=== PATIENT | female | born 1985 | race Caucasian/White ===

== ENCOUNTER → 2016-11-20 | Outpatient (CLI) | payer BC ==
--- NOTE | 2016-11-20 21:41 | DI ---
US PELVIC-TRANSVAGINAL, US PELVIC COMPLETE (NON OB),11/20/2016 3:25 PM: Clinical History: Menometrorrhagia. Previous Exam: September 26, 2016 Findings: Multiple transvaginal and transabdominal grayscale and color Doppler sonographic images are obtained through the pelvis, and demonstrate a normal-appearing uterus measuring 7.8 x 4.8 x 3.7 cm with an en dometrial stripe measuring 4 mm. A few nabothian cysts are seen. The ovaries are within normal limits containing a few maturing follicles. Right ovary measured 3.0 x 2.7 x 2.4 cm with normal Doppler flow. The left ovary measured 2.8 x 2.8 x 1.6 cm also with normal Doppler flow. There is a simple right ovarian cyst measuring 2.6 x 1.9 x 2.0 cm. This was not seen on the prior exa m. Impression: Normal pelvic ultrasound.
== END ==
LOC: US 15:18
PROVIDERS: ATTEND Family Medicine
DX: N92.1 Excessive and frequent menstruation with irregular cycle (principal); N83.291 Other ovarian cyst, right side
CPT/HCPCS: 76830; 76856

== ENCOUNTER → 2016-12-23 | Outpatient (CLI) | payer BC ==
--- NOTE | 2016-12-24 10:28 | DI ---
US PELVIC LIMITED (NON-OB), US PELVIC-TRANSVAGINAL,12/23/2016 1:37 PM: Clinical History: Right ovarian cyst. Previous Exam: November 20, 2016 Findings: Multiple transabdominal and endovaginal grayscale and color Doppler sonographic images are obtained t hrough the pelvis. The uterus measures 7.8 x 3.3 x 4.4 cm with an endometrial stripe measuring 4 mm. The right ovary measures 2.3 x 2.1 x 2.5 cm with a normal sonographic appearance. There is a simple c yst noted within the right ovary measuring 2.1 x 1.6 x 1.9 cm. The left ovary measures 3.4 x 1.3 x 2.9 cm also with a normal sonographic appearance. There is normal Doppler flow involving both ovaries. There is no free fluid. Impression: Simple cyst is seen now is smaller than on the prior exam, but probably represents a separate cyst as there is also a new smaller cyst adjacent to this cyst, and the shape is different. There is no further followup necessary.
== END ==
LOC: US 13:34
PROVIDERS: ATTEND Nurse Practitioner Family
DX: N83.201 Unspecified ovarian cyst, right side (principal); N92.1 Excessive and frequent menstruation with irregular cycle
CPT/HCPCS: 76830; 76857

== ENCOUNTER 2018-04-14 21:38 | Observation (INO) ==
[2018-04-14] MEDS: Lactated Ringers-OB Dept 1,000 ML PRIMARY IV SCH (23:05)
[2018-04-15] MEDS ORDERED: CALCIUM CARBONATE 500 MG (TUMS) CHEWABLE TABLET PO PRN (01:47)
[2018-04-15] MEDS ORDERED: Ondansetron ODT Tab 4 MG TAB PO PRN (01:47)
[2018-04-15] MEDS ORDERED: ONDANSETRON 4 MG/2 ML VIAL IVP PRN (01:47)
[2018-04-15] MEDS: NIFEdipine 10 MG CAPSULE PO SCH ×6 (02:24→21:19)
[2018-04-15] MEDS: BETAMET ACET/BETAMET NA PH 6 MG/1 ML - 5 ML IM SCH (02:25)
[2018-04-15] MEDS: Lactated Ringers-OB Dept 1,000 ML PRIMARY IV SCH ×2 (09:59→17:40)
--- NOTE | 2018-04-15 09:59 | OB.PROGRES ---
Interval History: The patient is a 33-year-old at 36-1/7 weeks who has a history of a section for arrest of descent an asynclitic presentation after an induction for preeclampsia who presented last evening with contractions. Initially, the contractions improved with IV hydration but then continued. The patient's cervix was checked and she was found to be fingertip to 1 cm and posterior. The patient received betamethasone 12 mg IM earlier this morning around 0130 hrs. and then with continued contractions the patient was started on nifedipine 10 mg every 4 hours. The patient states that she can feel her contractions but not significantly painful. Positive movement. No gush of fluid. No bleeding. The patient's cervix was checked again this morning by the labor and delivery nurse and there is been no change with her cervical exam. The nurse did comment that the patient's cervix was posterior and fingertip to 1 cm. The patient is hungry. The patient states that her antepartum course is essentially been uncomplicated. Occasional [place] contractions. Past medical history benign Past surgical history 1 and tonsil surgery as well as orthopedic surgery The patient is allergic to amoxicillin and latex. No tobacco, no alcohol, no drugs. Objective - Cervical Exam Cervical Exam: Fingertip to 1 cm posterior [place]: Contractions sometimes every 2-3 minutes and sometimes they space out Heart Rate Interpretation Category: Category I - Vital Signs Last Taken Vital Signs: Vital Signs - Last Taken Temperature 97.8 F 04/15/18 05:00 Pulse Rate 63 04/15/18 05:00 Respiratory Rate 15 04/15/18 05:00 Blood Pressure 129/74 04/15/18 05:00 Pulse Ox 98 04/15/18 05:00 - Additional Details Additional Details: Lungs clear to auscultation Heart regular rate and rhythm Abdomen was soft, gravid and nontender Extremity trace edema bilaterally and reflexes 1+ bilaterally. No clonus. Assessment and Plan - Assessment / Plan Additional Assessment/Plan Details: Assessment: IUP 36-1/7 weeks with history of section with contractions. Patient has a history of preeclampsia with her first delivery. was for arrest of descent with asynclitic presentation. The patient continues to contract sometimes more regular than others. The patient is currently receiving nifedipine 10 mg every 4 hours. The patient is status post betamethasone 12 mg IM 1 dose and will receive the second dose tomorrow morning in early. Patient has a history of preeclampsia and she had one blood pressure 142/81 but all other blood pressures are normal. Negative protein on urine dip late last evening. Plan: I would like to get an ultrasound for EFW and AGUSTIN and presentation. Continue nifedipine 10 mg every 4 hours Betamethasone early tomorrow morning I would like to check a CBC and CMP. Continue to follow closely. I spoke with the patient and her that I would like to have the patient complete the betamethasone steroid window if the patient's cervix is not changing. If the patient continues to contract but did not change her cervix, the patient could continue to take the nifedipine 10 mg every 4 hours until 37 weeks gestation. If the patient starts to change her cervix, I would offer the patient a repeat section. I explained that the betamethasone was for lung maturity but sometimes baby still have to be transferred for pulmonary issues, temperature instability or glucose issues to a NICU in [place], [place]. This does not happen often but may happen. The patient and her expressed understanding with this possibility. The also expressed understanding that if we can wait several days prior to the repeat , that would be ideal but even if a section occurred now most likely the baby would do well but possibly still need a NICU.
[2018-04-15 11:26] LABS: BASOPHILS # (AUTO) 0.01 10*3/UL; BASOPHILS % (AUTO) 0.1 % (0-1); EOSINOPHILS # (AUTO) 0 10*3/UL; EOSINOPHILS % (AUTO) 0 % (0-8); Hematocrit [HCT] 36.5 % (37.0-47.0); Hemoglobin [HGB] 12.3 g/dL (12.0-16.0); LYMPHOCYTES # (AUTO) 0.88 10*3/uL; MEAN CORPUSCULAR HEMOGLOBIN 28.1 PG (27-31); MEAN CORPUSCULAR HGB CONC 33.7 g/dL (33-37); MEAN CORPUSCULAR VOLUME 83.5 FL (81-99); MONOCYTES # (AUTO) 0.12 10*3/UL (0.3-0.8); MONOCYTES % (AUTO) 1.1 % (5-15); NEUTROPHILS # (AUTO) 9.62 10*3/UL; NEUTROPHILS % (AUTO) 89.9 % (50-80); RED BLOOD COUNT 4.37 10^6/uL (4.20-5.40)
[2018-04-15 11:36] LABS: BLOOD UREA NITROGEN 5 mg/dL (7-22); SERUM ALBUMIN 3.8 g/dL (3.5-4.8)
[2018-04-15 12:02] LABS: PLATELET MORPHOLOGY COMMENT NORMAL MORPHOLOGY (NORM); RBC MORPHOLOGY COMMENT NORMAL MORPHOLOGY (NORM); WBC MORPHOLOGY COMMENT NORMAL MORPHOLOGY (NORM)
--- NOTE | 2018-04-15 14:28 | DI ---
US OB , Limited,04/15/2018 9:49 AM: Clinical History: contractions. Previous Exam: January 15, 2018 Findings: Multiple grayscale and color Doppler sonographic images are obtained through the pelvis and demonstra te a single live intrauterine gestation in vertex presentation. Placenta is posterior and fundal. Amniotic fluid index measured 16.5 cm. Detected Doppler heart tones measure 134 beats per minute. Estimated gestational age is determined by a composite of biparietal diameter, head circumference, ab dominal circumference and femur length yielding an estimated gestational age by ultrasound of 35 week s 5 days. Estimated weight is 2727 g (37th percentile.) Impression: Single live intrauterine gestation with amniotic fluid index of 16.5 cm. Estimated weight corresponds with the 37th percentile.
[2018-04-15] MEDS: ACETAMINOPHEN 325 MG TABLET PO PRN ×2 (15:00→21:19)
--- NOTE | 2018-04-15 17:20 | OB.PROGRES ---
Interval History: The patient states that she has done well today. The patient can feel her contractions but they are not as strong as yesterday. Sometimes her contractions space out and sometimes they get more frequent. The patient does not have any pelvic pressure. Baby is moving well. No leak of fluid. The patient is tolerating her nifedipine 10 mg every 4 hours but did get a headache earlier which Tylenol helped relieve. Objective - Cervical Exam Cervical Exam: Deferred currently [place]: Every 2-3 minutes sometimes other times more spaced out. Heart Rate Interpretation Category: Category I - Labs CBC and BMP: 04/15/18 11:00 04/15/18 09:51 - Vital Signs Last Taken Vital Signs: Vital Signs - Last Taken Temperature 98 F 04/15/18 09:30 Pulse Rate 77 04/15/18 12:00 Respiratory Rate 16 04/15/18 12:00 Blood Pressure 130/71 04/15/18 09:30 Pulse Ox 98 04/15/18 12:00 Assessment and Plan - Assessment / Plan Additional Assessment/Plan Details: Assessment: IUP 36-1/7 weeks with previous section with contractions. Patient received 1 dose of steroids earlier this morning at 0225 hours. Patient's contractions are less intense than they were when the patient first resented last evening. The patient does not feel any pressure. I did not check the patient's cervix now since the patient's cervix was checked last evening and this morning and the patient's cervix was a fingertip to 1 cm dilated. I did not want to irritate the patient's cervix and cause more contractions and irritability. Plan: The patient will continue to be observed and received her second dose of betamethasone 12 mg IM at 0225 hours tomorrow morning. If the patient's cervix has not changed tomorrow morning and the patient's contractions are not intense, it is a possibility for the patient to go home to return the next day for evaluation. However, the patient may also stay and continued to be evaluated for cervical change. On Friday (today is Friday) if the patient's cervix has not changed and the patient's contractions are improved, the patient may be discharged home with close follow-up. If the patient's cervix has changed on Friday, a repeat section could be completed then. The patient and I discussed this plan. The patient expressed understanding.
[2018-04-16] MEDS: NIFEdipine 10 MG CAPSULE PO SCH ×6 (02:13→21:37)
[2018-04-16] MEDS: BETAMET ACET/BETAMET NA PH 6 MG/1 ML - 5 ML IM SCH (02:14)
[2018-04-16] MEDS: Lactated Ringers-OB Dept 1,000 ML PRIMARY IV SCH ×3 (05:46→16:22)
--- NOTE | 2018-04-16 09:29 | OB.PROGRES ---
Interval History: 33 yo at 36 2/7 weeks gestation admitted for contractions. She reports that at about 3 hours after her procardia the contractions hot die picker again. Early this morning they were much more painful than they had been throughout her hospitalization. Associated back pain, nausea. Feels like when she was in labor with her son. Objective - Cervical Exam Cervical Exam: per RN 1/ /-3, posterior - unchanged [place]: 30 minutes between contraction Heart Rate: baseline 115, accels, no decels, mod variability Heart Rate Interpretation Category: Category I - Labs CBC and BMP: 04/15/18 11:00 04/15/18 09:51 - Vital Signs Last Taken Vital Signs: Vital Signs - Last Taken Temperature 97.7 F 04/16/18 09:20 Pulse Rate 65 04/16/18 09:20 Respiratory Rate 16 04/16/18 09:20 Blood Pressure 128/68 04/16/18 09:20 Pulse Ox 95 04/16/18 09:20 Assessment and Plan - Patient Problems (1) contractions Current Visit: Yes Status: Acute Code(s): O47.9 - False labor, unspecified (2) S/P primary low transverse Current Visit: No Status: Acute Code(s): Z98.89 - Other specified postprocedural states Support Text: 33 yo at 36 2/7 weeks gestation with h/o section, now with contractions. She received her 2nd dose of steroids early this morning and will complete the window early Friday morning. At time of exam she was not feeling contractions, however at about 3 hours after her dose of procardia they start to really hot die picker and have gotten progressively more painful. She has not however had cervical change, again this morning she was 1 cm dilated, posterior. Since she has not proven to be in active labor, I think it is reasonable to await delivery to reach the full steroid window. However she did note increased pain this am so I don't feel comfortable sending her home at this point. Will see how she does throughout the day, if contractions hot die picker and she has cervical change she will need a repeat section. Dr. Oh to take over care later today as he is automotive collision repair instructor now.
[2018-04-16] MEDS: Prenatal Multivitamin Tab 1 TAB TAB PO SCH (10:08)
[2018-04-16 14:08] VITALS: RESP 18
[2018-04-16] MEDS ORDERED: Zolpidem Tab 5 MG TAB PO PRN (23:31)
[2018-04-17] MEDS: Lactated Ringers-OB Dept 1,000 ML PRIMARY IV SCH ×2 (00:58→08:36)
[2018-04-17] MEDS: NIFEdipine 10 MG CAPSULE PO SCH ×3 (02:08→09:37)
[2018-04-17 07:28] VITALS: BP 125/67; TEMP 98.2; O2SAT 100
[2018-04-17] MEDS: Prenatal Multivitamin Tab 1 TAB TAB PO SCH ×2 (09:37→11:42)
--- NOTE | 2018-04-17 10:59 | OB.PROGRES ---
Interval History: The patient states that her contractions have improved greatly. They start to package pick up slightly at the 4 hour shravan when the nifedipine is due. Positive movement, no bleeding, no leak of fluid. The patient has not eaten this morning wondering whether or not she was going to have a now that she is steroid complete. The patient is pleased that she is not shelley as much. Objective - Cervical Exam Cervical Exam: Deferred exam [place]: Regular contractions Heart Rate Interpretation Category: Category I - Labs CBC and BMP: 04/15/18 11:00 04/15/18 09:51 - Vital Signs Last Taken Vital Signs: Vital Signs - Last Taken Temperature 98.2 F 04/17/18 07:00 Pulse Rate 81 04/17/18 07:00 Respiratory Rate 18 04/17/18 07:00 Blood Pressure 125/67 04/17/18 07:00 Pulse Ox 100 04/17/18 07:00 - Additional Details Additional Details: Abdomen soft and nontender without guarding or rebound Assessment and Plan - Assessment / Plan Additional Assessment/Plan Details: Assessment: IUP 36 3/7 weeks with contractions. Patient is now steroid complete as of early this morning. The patient received a complete course of betamethasone 12 mg IM x2 doses. The patient's contractions have improved significantly with the patient taking nifedipine 10 mg every 4 hours. The patient does notice increased contractions at the 4 hour shravan just as she is taking her next dose. The contractions quickly resolved with the nifedipine dosing. The baby is moving well with category 1 heart rate tracing. Plan: Discharge patient home with strict labor precautions and kick count precautions The patient should be on decreased activity at home with couch rest and bathroom privileges and kitchen privileges. The patient will return Friday for an appointment. Pelvic rest currently. The patient will take nifedipine 10 mg every 4 hours until 37 weeks gestation. The patient will continue her multivitamin
--- NOTE | 2018-04-17 11:06 | DCSUMMARY ---
Hospitalization Summary Admit Date: 04/14/18 Discharge Date: 04/17/18 Primary Diagnosis:: IUP 36-3/7 weeks with contractions Secondary Diagnosis:: History of section contractions controlled with nifedipine 10 mg daily every 4 hours. Group B strep negative Patient status post betamethasone steroid course Hospital Course: Assessment: IUP 36 3/7 weeks with contractions. Patient is now steroid complete as of early this morning. The patient received a complete course of betamethasone 12 mg IM x2 doses. The patient's contractions have improved significantly with the patient taking nifedipine 10 mg every 4 hours. The patient does notice increased contractions at the 4 hour shravan just as she is taking her next dose. The contractions quickly resolved with the nifedipine dosing. The baby is moving well with category 1 heart rate tracing. Plan: Discharge patient home with strict labor precautions and kick count precautions The patient should be on decreased activity at home with couch rest and bathroom privileges and kitchen privileges. The patient will return Friday for an appointment. Pelvic rest currently. The patient will take nifedipine 10 mg every 4 hours until 37 weeks gestation. The patient will continue her multivitamin Exam - Vitals Vital Signs: Vital Signs Temperature 98.2 F Temperature Source Oral Pulse Rate [Pulse Oximeter] 81 Pulse Rate 78 Respiratory Rate 18 Blood Pressure [Right Arm] 125/67 Pulse Ox 100 Oxygen Delivery Method Room Air Height 5 ft 9 in Weight 227 lb
== END 2018-04-17 11:35 | disposition home or self-care (01) ==
LOC: OBOP 21:38 → OBIP 21:38
PROVIDERS: ADMIT Obstetrics & Gynecology; ATTEND Obstetrics & Gynecology

== ENCOUNTER 2018-04-21 12:06 | Inpatient (IN) ==
[2018-04-21] MEDS ORDERED: LIDOCAINE HCL 2 % 10 ML JELLY URO-JECT TOPICAL PRN (13:26)
[2018-04-21] MEDS ORDERED: Metoclopramide Inj 10 MG/2 ML VIAL IV ONE (13:26)
[2018-04-21] MEDS ORDERED: CefOXitin Inj 2 GM in Sodium Chloride 0.9% 100 ML IV ONE (13:26)
[2018-04-21] MEDS ORDERED: CITRIC ACID/SODIUM CITRATE 30 ML CUP PO ONE (13:26)
[2018-04-21] MEDS ORDERED: Lactated Ringers 1,000 ML PRIMARY IV ONE ×4 (13:26→15:22)
[2018-04-21] MEDS ORDERED: LIDOCAINE W/ SODIUM BICARB 0.5 ML SYR SUBD PRN (13:26)
[2018-04-21] MEDS ORDERED: FAMOTIDINE 20 MG/2 ML VIAL IVP ONE (13:26)
[2018-04-21] MEDS ORDERED: Lactated Ringers 1,000 ML PRIMARY IV SCH (13:30)
[2018-04-21] MEDS ORDERED: Oxytocin 20 Units + LR 20 UNIT/1,000 ML BAG IV SCH ×2 (13:30→17:47)
[2018-04-21] MEDS ORDERED: OXYTOCIN 10 UNIT/1 ML ONE ×2 (13:42→15:23)
[2018-04-21] MEDS ORDERED: Sodium Chloride 0.9% vial 10 ML ONE (13:42)
[2018-04-21] MEDS ORDERED: ePHEDrine Inj 50 MG/ML AMP ONE (13:42)
[2018-04-21] MEDS ORDERED: LIDOCAINE W/ SODIUM BICARB 0.5 ML SYR ONE (13:42)
[2018-04-21 13:59] LABS: Hematocrit [HCT] 38.1 % (37.0-47.0); MEAN CORPUSCULAR HEMOGLOBIN 28.3 PG (27-31); MEAN CORPUSCULAR HGB CONC 34.1 g/dL (33-37); RED BLOOD COUNT 4.59 10^6/uL (4.20-5.40)
[2018-04-21] MEDS ORDERED: fentaNYL Inj 100 MCG/2 ML VIAL ONE ×2 (14:57→15:26)
[2018-04-21] MEDS ORDERED: KETOROLAC 30 MG/1 ML VIAL ONE (16:13)
--- NOTE | 2018-04-21 16:20 | CRNA.PROCE ---
Central Neuraxis Block Placemt - - Safety Measures: Time Out Taken, Site Verified - - Type of Block: Subarachnoid Positioning: Sitting Skin Prep Used: ChloroPrep Draped: Yes Skin Infiltration - Enter Amount Used in Comment Field: 1% Xylocaine with Bicarb (mL): Yes (1cc) Spinal Needle Used: 25 Oliver 80 mm Local Anesthetic - Enter Amount Used in Comment Field: 0.75 % Bupivacaine with Dextrose (ml): Yes (2cc) Bioclusive Dressing Applied: No Anesthesia Time - Other Weight: 101.605 kg Height: 5 ft 8 in Body Mass Index (BMI): 34.0
--- NOTE | 2018-04-21 16:22 | CRNA.PROGR ---
Anesthesia Time - - Start date: 04/21/18 - Procedure/Recovery Time Anesthesia : Time In: 14:39 Anesthesia : Time Out: 16:10 - Block Time PreOp Block : Time In: 14:39 PreOp Block : Time Out: 14:53 - Other Weight: 101.605 kg Height: 5 ft 8 in Body Mass Index (BMI): 34.0 Physical Status: P2 Anesthesia Type: Spinal Block Obstetrics: C/S anesthesia only (repeat c-sxn in active labor)
--- NOTE | 2018-04-21 16:49 | OB.OP.NOTE ---
Operative Report Surgeon: Alla Osuna MD Theater Projectionist: Cy Oh MD Anesthesia Type: Regional Anesthesia Provider: Ebony Smart CRNA Surgery Date: 04/21/18 Preoperative Diagnosis: 1. Labor. 2. Previous section Postoperative Diagnosis: 1. same, delivered. 2. Extensive adhesions of left ovary to large bowel, reduced Procedure: Repeat section Complications: none Estimated Blood Loss (mL): 400 Urine Output (mL): 150 Fluids: 3500 cc LR, 40 mU of pitocin Indications: Pt was admitted last week for regular contractions. She had no cervical change person 2-3 days, but had some intermittent contractions. She was discharge home after a course of betamethasone. She was prescribed procardia to take prn for contractions. She has remained on this around the clock. About 3 hours after her procardia dose, her contraction pain would increase. Yesterday, she was seen in the office and had cervical change from the week before to 2-3/50/-1/ anterior and soft. She was instructed to take her procardia as scheduled until this morning, when she was 37 weeks. She presented for a NST for continued, painful contractions around 1200. She was noted to be shelley regularly, every 3-4 minutes, with cervical change to 3-4 cm and a slightly bulging bag of amniotic fluid. She was admitted in labor. We do not offer vaginal after section trials at our facility and the patient did not desire this. She is requesting a repeat section. Findings: viable female , vertex presentation, clear amniotic fluid. Extensive adhesions noted between left ovary and large bowel. Description of Procedure: The patient was taken to the operating room where spinal anesthesia was found to be adequate. She was then prepared and draped in the normal sterile fashion in the dorsal supine position with a leftward tilt. A Pfannenstiel skin incision was then made with the scalpel and carried through to the underlying layer of fascia with Bovie. The fascia was incised in the midline and the incision extended laterally with the Bovie. The superior aspect of the fascial incision was then grasped with Viviana clamps, elevated and the underlying rectus muscles dissected off bluntly. Attention was then turned to the inferior aspect of this incision which, in a similar fashion, was grasped with Viviana clamps and the rectus muscles dissected off both bluntly and with the Bovie. The rectus muscle was then in the midline, and the peritoneum identified and entered in a blunt fashion. The peritoneal incision was then extended superiorly and inferiorly with good visualization of the bladder. The Benja retractor was then inserted and the vesicouterine peritoneum was identified. The lower uterine segment incised in the transverse fashion with the scalpel. The uterine incision was then extended laterally in a blunt fashion. The 's head was delivered atraumatically. There was a nuchal cord x 1, which was reduced. The nose and mouth were suctioned with the bulb suction and the cord clamped and cut after 45 seconds. The was handed off to the awaiting nurse. Cord gases and cord blood were sent for analysis. The placenta was then removed manually; the uterus exteriorized, and cleared of all clots and debris. The uterine incision was repaired with 0 Vicryl in a running, locked fashion. A second layer of the same suture was used to obtain excellent hemostasis. The peritoneal cavity was then copiously irrigated with warm saline. It was noted that there were dense adhesions between the left ovary and the large bowel. These were reduced very gently and carefully with small snips of the metzenbaum scissors. Hemostasis was assured. The uterus was returned to the abdomen. The paracolic gutters were copiously irrigated with warm saline and a second look at the uterine incision continued to reveal excellent hemostasis. The peritoneum was closed with 3-0 Vicryl. The fascia was reapproximated with 0 PDS in a running fashion. The subcutaneous space was irrigated copiously with warm saline and the closed first with 3-0 Vicryl and then more superficially with Insorb absorbable sutures. The skin was reapproximated with Steri-Strips and a Silverlon dressing applied. Fundal massage was completed with no clots in vaginal vault. The patient tolerated the procedure well. Sponge, lap, and needle counts were correct x2. Mefoxin was given preoperatively less than one hour prior to incision time. The patient was taken to the recovery room in stable condition.
[2018-04-21] MEDS ORDERED: BUTORPHANOL TARTRATE 2 MG/1 ML VIAL IVP PRN (17:47)
[2018-04-21] MEDS ORDERED: diphenhydrAMINE 25 MG CAPSULE PO PRN (17:47)
[2018-04-21] MEDS ORDERED: Nalbuphine Inj 20 MG/ML Ampule IVP PRN (17:47)
[2018-04-21] MEDS ORDERED: FAMOTIDINE 20 MG/2 ML VIAL IVP PRN (17:47)
[2018-04-21] MEDS ORDERED: HYDROmorphone 2 MG/1 ML IV PRN (17:47)
[2018-04-21] MEDS ORDERED: ONDANSETRON 4 MG/2 ML VIAL IVP PRN (17:47)
[2018-04-21] MEDS ORDERED: diphenhydrAMINE 50 MG/1 ML VIAL IV PRN (17:47)
[2018-04-21] MEDS ORDERED: Naloxone Inj 0.01 MG, Sodium Chloride 0.9% vial 1 ML IVP PRN ×2 (17:47)
[2018-04-21] MEDS ORDERED: CALCIUM CARBONATE 500 MG (TUMS) CHEWABLE TABLET PO PRN (17:47)
[2018-04-21] MEDS ORDERED: LANOLIN HPA 40 GM TUBE TOPICAL PRN (17:47)
[2018-04-21] MEDS ORDERED: DIPH,PERTUSS,TET(ADACEL) VAC/PF 0.5 ML (Tdap) IM ONE (17:47)
[2018-04-21] MEDS: oxyCODONE-ACETAMINOPHEN 5-325 TAB PO PRN ×2 (18:39→22:53)
[2018-04-21] MEDS: KETOROLAC 15 MG/1 ML VIAL IVP SCH (22:53)
[2018-04-22] MEDS: oxyCODONE-ACETAMINOPHEN 5-325 TAB PO PRN ×3 (02:51→22:15)
[2018-04-22] MEDS: D5-LR 1,000 ML PRIMARY IV SCH ×4 (04:39→20:56)
[2018-04-22] MEDS: KETOROLAC 15 MG/1 ML VIAL IVP SCH ×4 (04:43→22:05)
[2018-04-22 06:12] LABS: Hematocrit [HCT] 31.8 % (37.0-47.0); Hemoglobin [HGB] 10.7 g/dL (12.0-16.0); MEAN CORPUSCULAR HEMOGLOBIN 28.2 PG (27-31); MEAN CORPUSCULAR HGB CONC 33.6 g/dL (33-37); MEAN CORPUSCULAR VOLUME 83.9 FL (81-99); MEAN PLATELET VOLUME 9.9 FL (7.4-12.2); RED BLOOD COUNT 3.79 10^6/uL (4.20-5.40)
[2018-04-22] MEDS: Senna/Docusate Tab 1 TAB TAB PO SCH ×2 (09:46→22:15)
--- NOTE | 2018-04-22 11:17 | CRNA.PROGR ---
Anesthesia Note - Progress Notes Anesthesia Progress Note: Sitting up in a chair. States she's doing"pretty good" States her "tailbone is a little sore. Denies headache or nausea. Justa is out and she's been up to the bathroom. Vital Signs - Last Taken Temperature 98.5 F 04/22/18 04:55 Pulse Rate 79 04/22/18 04:55 Respiratory Rate 18 04/22/18 04:55 Blood Pressure 116/82 04/22/18 04:55 Pulse Ox 97 04/22/18 05:10 No apparent anesthetic difficulties.
[2018-04-22] MEDS: Prenatal Multivitamin Tab 1 TAB TAB PO SCH (12:56)
[2018-04-22] MEDS: IBUPROFEN 800 MG TABLET PO PRN (23:58)
[2018-04-23] MEDS: oxyCODONE-ACETAMINOPHEN 5-325 TAB PO PRN ×2 (02:59→08:34)
[2018-04-23] MEDS: Prenatal Multivitamin Tab 1 TAB TAB PO SCH (08:34)
[2018-04-23] MEDS: IBUPROFEN 800 MG TABLET PO PRN ×2 (08:34→15:58)
[2018-04-23] MEDS: Senna/Docusate Tab 1 TAB TAB PO SCH ×2 (08:34→21:17)
--- NOTE | 2018-04-23 19:42 | OB.PROGRES ---
Subjective Post Op Day: 1 Pain Management: PO Marr Catheter: No Flatus: Yes Diet: Regular Feeding Method: Exculsively Ambulating: Yes Concerns / Additional Information: Doing well. A little emotional today due to baby being in the nursery for hypoglycemia. Voiding normally. No bowel movement, but + flatus. Tolerating regular diet. A little sore on the sides of her abdomen. Objective - General General Appearance: POSITIVE: No Acute Distress, Cooperative - Cardiovacular Cardiovascular Exam: POSITIVE: RRR, No Murmur Edema: +1 Pedal Edema Extremities: Negative Mike's - Bilaterally - Respiratory Respiratory Exam: POSITIVE: Clear to Auscultation - Bilaterally, Breathing Non Labored - Abdomen Bowel Sounds: Hypoactive Assesstment / Plan (1) S/P repeat low transverse Current Visit: Yes Status: Acute Assessment / Plan: -routine cares. -will monitor closely for depression. -will continue to pump every 2-3 hours while baby is in the critical care nursery. -rh positive. -rubella immune. -possible d/c home in 1-2 days, pending baby's condition.
--- NOTE | 2018-04-23 19:50 | OB.PROGRES ---
Subjective Post Op Day: 2 Pain Management: PO Marr Catheter: No Flatus: Yes Diet: Regular Feeding Method: Exculsively Ambulating: Yes Concerns / Additional Information: Doing well, affect is brighter today. No concerns. Objective - General General Appearance: POSITIVE: No Acute Distress, Cooperative - Cardiovacular Cardiovascular Exam: POSITIVE: RRR, No Murmur Edema: +1 Pedal Edema Extremities: Negative Mike's - Bilaterally - Respiratory Respiratory Exam: POSITIVE: Clear to Auscultation - Bilaterally, Breathing Non Labored - Abdomen Bowel Sounds: Hypoactive Abdominal Wound Assessment: Silverlone Dressing Assesstment / Plan (1) S/P repeat low transverse Current Visit: Yes Status: Acute Assessment / Plan: -routine cares. -rubella immune. -rh positive. -pumping/nursing every 2-3 hours. -likely d/c home tomorrow.
[2018-04-24 01:35] VITALS: RESP 16
[2018-04-24] MEDS: IBUPROFEN 800 MG TABLET PO PRN (09:36)
[2018-04-24] MEDS: Senna/Docusate Tab 1 TAB TAB PO SCH (09:36)
[2018-04-24] MEDS: Prenatal Multivitamin Tab 1 TAB TAB PO SCH (09:40)
[2018-04-24 12:38] VITALS: O2SAT 97
[2018-04-24 17:24] VITALS: TEMP 98
[2018-04-24 17:28] VITALS: BP 136/77
--- NOTE | 2018-05-03 22:30 | DCSUMMARY ---
Hospitalization Summary Admit Date: 04/21/18 Discharge Date: 04/24/18 Primary Diagnosis:: Previous section, labor Secondary Diagnosis:: same, delivered Primary Surgery and Date: Repeat section on 04/21/18 Delivery Type: Hospital Course: Pt reported to labor and delivery with the complaint of regular, painful uterine contractions. Her cervix was noted to have changed from the previous day with a bulging bag. She had previously been consented and had agreed to a repeat section. Because of labor, she had her early. / Postop Complications: none Complications: Baby jermaine Fitzpatrick initially required respiratory support in the form of CPAP. She was started on maintenance levels of D10 due to her NPO status. She was eventually weaned to room air and, after 24 hours of IV fluids, she was weaned off her fluids. On the day of discharge, she was eating well, with normal voids and stools. Her oxygen saturations had remained very normal. Exam - Vitals Vital Signs: Vital Signs Temperature 98.0 F Temperature Source Oral Pulse Rate [Apical] 64 Pulse Rate [Pulse Oximeter] 76 Pulse Rate 69 Respiratory Rate 16 Blood Pressure [Left Arm] 136/77 Blood Pressure [Right Arm] 116/83 Blood Pressure 139/83 Pulse Ox 97 Oxygen Flow Rate RA Oxygen Delivery Method Room Air Height 5 ft 8 in Weight 224 lb - General General Appearance: No Acute Distress, Cooperative - Head Head Exam: Normal Inspection - Respiratory Respiratory Exam: POSITIVE: Clear to Auscultation - Bilaterally, Breathing Non Labored - Cardiovascular Cardiovascular Exam: POSITIVE: RRR, No Murmur - GI/Abdominal GI/Abdominal Exam: POSITIVE: Normal Bowel Sounds, Non Tender, Non Distended, Soft - Extremities Extremities Exam: POSITIVE: +1 Edema - Neurological Neurological Exam: POSITIVE: Alert, Oriented x 3 - Psychiatric Psychiatric Exam: POSITIVE: Normal Affect, Normal Mood - Integumentary Integumentary Exam: POSITIVE: Normal Color, Warm, Dry Patient Problems - Patient Problem List (1) S/P repeat low transverse Status: Acute Code(s): Z98.891 - History of uterine scar from previous surgery Category: Medical
== END 2018-04-24 20:20 | disposition home or self-care (01) | DRG 766 ==
LOC: OBOP 12:06 → OBIP 13:29 → UNDODISIN 04-24 20:15 → OBIP 05-06 14:56
PROVIDERS: ADMIT Family Medicine; ATTEND Family Medicine